=== PATIENT | female | born 1965 | race Caucasian/White ===

== ENCOUNTER 2018-05-12 09:52 | Emergency (ER) | payer SELFPAY | END 2018-05-12 11:51 | disposition home or self-care (01) | LOC: ERS 09:52 | DX: S76.012A Strain of muscle, fascia and tendon of left hip, initial encounter (principal); W19.XXXA Unspecified fall, initial encounter | CPT/HCPCS: 99283 ==

== ENCOUNTER 2020-01-17 12:59 | Observation (INO) | payer OTHER, SELFPAY ==
[2020-01-17 13:48] LABS: #Basophils 0.1 thou/uL (0.0-0.2); #Lymphocytes 1.7 thou/uL (1.20-3.40); #Monocytes 0.5 thou/uL (0.11-0.59); #Neutrophils 2.8 thou/uL (1.40-6.50); %Basophils 2.5 % (0.0-1.0); %Eosinophils 0.9 % (0.0-10.0); %Lymphocytes 32.1 % (21.0-51.0); %Monocytes 10.3 % (0.0-10.0); %Neutrophils 54.2 % (42.0-75.0); Hemoglobin 4.9 g/dL (12.0-16.0); Mean Corpuscular HGB CONC 28.4 g/dL (32.0-36.0); Mean Corpuscular Hemoglobin 17.7 pg (27.0-31.0); Mean Corpuscular Volume 62.2 fL (78.0-98.0); Mean Platelet Volume 10.1 fL (7.4-10.4); Platelet Count 564 thou/uL (130-400); RBC Distribution Width 20.6 % (11.5-14.5); Red Blood Cell (RBC) Count 2.79 mill/uL (4.20-5.40); White Blood Cell (WBC) Count 5.2 thou/uL (4.8-10.8)
--- NOTE | 2020-01-17 13:49 | RAD ---
RADIOGRAPH CHEST 1 VIEW: DATE: 01/16/2020 HISTORY: 54-year-old female with dyspnea FINDINGS: There are no airspace densities, pulmonary edema, pneumothorax, or cardiomegaly. The lateral costophr enic angles are sharp. IMPRESSION: No acute cardiopulmonary findings.
[2020-01-17 14:07] LABS: ALT (SGPT) 10 U/L (8-55); AST (SGOT) 14 U/L (5-34); Alkaline Phosphatase 42 U/L (40-110); Anion Gap 9 mmol/L (10-20); Anisocytosis MODERATE=16-30 cells (100X) (0-5/hpf); BUN (Urea Nitrogen) 12 mg/dL (9.8-20.1); Bilirubin, Total 0.3 mg/dL (0.2-1.2); Calc. Creatinine Clearance 0 mL/min (70-130); Calcium 8.3 mg/dL (7.8-10.44); Carbon Dioxide 25 mmol/L (22-29); Chloride 104 mmol/L (98-107); Estimated GFR-MDRD Greater than 90; Globulin 2.7 g/dL (2.4-3.5); Glucose 113 mg/dL (70-105); Hypochromia SLIGHT = 6-15 cells (100X) (0-5/hpf); MDiff Complete? YES; Microcytosis SLIGHT = 6-15 cells (100X) (0-5/hpf); Ovalocytes SLIGHT = 2-5 cells (100X) (0-1/hpf); Platelet Morphology Comment Appears Increased; Poikilocytosis SLIGHT = 6-15 cells (100X) (0-5/hpf); Polychromasia SLIGHT = 2-3 cells (100X) (0-2/hpf); Potassium 3.3 mmol/L (3.5-5.1); Protein, Total 6.7 g/dL (6.0-8.3); Reflex for Review?? YES; Schistocytes SLIGHT = 2-5 cells (100X) (0-1/hpf); Sodium 135 mmol/L (136-145); Target Cells SLIGHT = 2-5 cells (100X) (0-1/hpf); Tear Drops SLIGHT = 2-5 cells (100X) (0-1/hpf)
[2020-01-17] MEDS ORDERED: Ondansetron PF 4 MG/2 ML Vial ONE (14:17)
[2020-01-17] MEDS ORDERED: Acetaminophen 650 MG Suppository PR PRN (18:17)
[2020-01-17] MEDS ORDERED: Acetaminophen 325 MG TAB PO PRN (18:17)
[2020-01-17] MEDS ORDERED: Ondansetron PF 4 MG/2 ML Vial IVP PRN (18:17)
[2020-01-17] MEDS ORDERED: Ondansetron ODT 4 MG TAB PO PRN (18:17)
[2020-01-17] MEDS ORDERED: Potassium Chloride 20 MEQ TAB PO SCH (18:30)
[2020-01-17 18:38] LABS: Hemoglobin 5.5 g/dL (12.0-16.0)
--- NOTE | 2020-01-17 20:03 | HP ---
TIME OF ASSESSMENT: 1700 hours. CHIEF COMPLAINT: Lightheadedness and palpitations. PRIMARY CARE PHYSICIAN: None. HISTORY OF PRESENT ILLNESS: Ms. Juan is a 54-year-old woman, who states she became extremely lightheaded and dizzy while driving her car, causing her to mandrel puller. She reports feeling palpitations and nausea, prompting her to seek medical attention. The patient states that she has been on her menses, which is normally extremely heavy, causing her to go through over eight super tampons a day. States she often passes large blood clots. She states the bleeding has been much worse than it has been today and she has never felt this symptomatic. She states she did not have much to eat this morning and did go tanning with a friend followed by drinking a couple of beers before she started to feel badly. At the moment, her symptoms have almost fully resolved. She has been transfused with 1 unit of packed red blood cells in the ER after having laboratory studies done that indicated severe anemia with a hemoglobin of 4.9. She had an EKG done, which demonstrated normal sinus rhythm with a heart rate of 69. No ST changes or T-wave abnormalities present. She also received a dose of ondansetron and 500 mL of normal saline. The patient denies any followup with her primary care physician or blaster helper with regard to her heavy menses. She states she has had this all of her life and her menses have always been irregular. Denies any abnormal weight loss. Has otherwise felt well in herself without any complaints. At present, she denies any shortness of breath, palpitations, or chest pain. All other review of systems is negative. ALLERGIES: NO KNOWN DRUG ALLERGIES. CURRENT MEDICATIONS: None. PAST MEDICAL HISTORY: 1. Iron deficiency anemia. 2. Menorrhagia. PAST SURGICAL HISTORY: None. SOCIAL HISTORY: The patient drinks socially and denies any tobacco use or illicit drug use. FAMILY HISTORY: Noncontributory. PHYSICAL EXAMINATION: GENERAL: The patient appears well developed, well nourished, and in no acute distress. She is resting comfortably on a stretcher. VITAL SIGNS: Temperature 98.2, blood pressure 114/58, pulse 71, respirations 14, and O2 saturation 99% on room air. HEENT: Normocephalic and atraumatic. Pupils are equal, round, and reactive to light. Sclerae without icterus. Oropharynx is clear. NECK: Supple. LUNGS: Clear to auscultation bilaterally without any wheezes, rales, or rhonchi. CARDIAC: Regular rate and rhythm. ABDOMEN: Soft, nontender, and nondistended. Normoactive bowel sounds present. No guarding or rigidity. No renal angle tenderness. EXTREMITIES: No lower leg swelling or edema. Peripheral pulses strong and equal bilaterally. SKIN: Normal, warm and dry. No pallor. Skin turgor normal. NEUROLOGIC: Alert and oriented x3. No neuro deficits on exam. LABORATORY DATA: White blood count , hemoglobin 4.9, hematocrit 17.4, platelets 564. Sodium 135, potassium 3.3, BUN 12, creatinine 0.66, GFR greater than 90, glucose 113. LFTs unremarkable. Troponin negative. Albumin 4.0. IMAGING DATA: Chest x-ray, unremarkable. IMPRESSION AND PLAN: Ms. Juan is a 54-year-old woman, presenting with lightheadedness and dizziness associated with heavy menses, who is being admitted for management of the following. 1. Symptomatic anemia. Palpitations and shortness of breath have resolved. She had a significantly low hemoglobin of 4.9. She has been given 1 unit of packed red blood cells in the ED and will receive a second unit. We will continue to monitor H and H. Iron studies have been requested. . 2. Menorrhagia. According to the patient, she has always had extremely heavy menses and for the moment, the bleeding has eased compared to this morning. Consult placed to COMPUTER REPAIRER. 3. Palpitations. EKG unremarkable. The patient will remain on cardiac monitoring. Continue to trend troponins. Echo ordered and orthostatic blood pressures ordered as well. 4. Hypokalemia. Continue to monitor electrolytes and replace as needed. 5. Gastrointestinal prophylaxis with famotidine. 6. Deep venous thrombosis prophylaxis. Mechanical SCDs ordered. Anticoagulation is contraindicated given bleeding and severe anemia. 7. Code status full. Surrogate decision maker is her daughter, Bronwyn Guevara. 8. Case discussed with Dr. Hood, who agrees with plan of care as described above. Job ID: [id number]
[2020-01-17] MEDS: Famotidine/PF 20 mg/2ml Vial SLOW IVP SCH (20:30)
[2020-01-17 21:07] VITALS: BMI 26.0
--- NOTE | 2020-01-17 23:45 | ULT ---
Exam: Pelvic ultrasound HISTORY: Menorrhagia, pelvic mass. COMPARISON: None TECHNIQUE: Multiple grayscale and color Doppler images were obtained in a transabdominal pelvic ultra sound. Spectral analysis of the Doppler waveforms of the ovaries were performed. FINDINGS: CERVIX: Not well assessed on this exam. UTERUS: Enlarged and heterogeneous in appearance. Uterus measures 14.6 cm x 7 cm x 10.7 cm. Uterus al so has a lobulated appearance with heterogeneous masses in the uterus. Largest masses are seen within the right body of uterus measuring 5.8 cm with largest mass left body uterus measuring 5.6 cm and largest mass in the midline at the fundus measuring 5.5 cm. ENDOMETRIAL STRIPE: Endometrial stripe is not delineated on transabdominal imaging. There is no fluid or fluid collection in the expected location of the endometrium. No free fluid is present. RIGHT OVARY: Not visualized due to enlarged uterus and shadowing from bowel gas. LEFT OVARY:Normal in appearance with small cyst/follicle measuring 1.6 cm. Flow is present in the lef t ovary. IMPRESSION: 1. Large heterogeneous and lobulated uterus with multiple masses seen related to multiple uterine fib roids. 2. Nonvisualization of the endometrial stripe. However, no fluid or fluid collection is seen in the e xpected location of the endometrium. 3. Normal-appearing left ovary. The right ovary is not visualized.
--- NOTE | 2020-01-18 04:53 | CON ---
DATE OF CONSULTATION: 01/17/2020 REASON FOR CONSULTATION: Menorrhagia. HISTORY OF PRESENT ILLNESS: The patient is a 54-year-old female who presented to the emergency room today with symptomatic anemia. The patient has noted to be having very heavy periods for the last couple of years and is on the tail end of her this month's menstruation which has been going on for about 2 weeks. The patient was admitted to the hospital for blood transfusion and PLANNING ADVISOR was consulted. At the time of my evaluation, the patient reports that she had not changed her tampon in about 6 to 7 hours. Reports that she has regular monthly periods, but of prolonged duration at times. Her last period has been going on for about 2 weeks. She thought that she was finished a few days ago, it stopped bleeding and then today had very heavy bleeding requiring 8 pads. Upon finishing up at a [email or web address], the patient reported that she was excessively weak, tired and dizzy and was unable to drive her car safely and was ultimately brought to the emergency room for evaluation. Here, she was noted to have a hemoglobin of 4.9, hematocrit of 17.4 , MCV of 62. At the time of my evaluation, patient received 1 unit of packed red blood cells, which reports has helped her feel better and have some resolution of her symptoms, though she does still report some dizziness. The patient denies fever, cough, headache, chest pain, shortness of breath, nausea, vomiting, diarrhea, constipation, hip problems, knee problems, muscle weakness, any new rashes, urinary urgency or frequency. PAST MEDICAL HISTORY: Newly diagnosed anemia and menorrhagia. PAST SURGICAL HISTORY: Negative. SOCIAL HISTORY: The patient drinks occasionally. Denies tobacco or drug use. ALLERGIES: NO KNOWN DRUG ALLERGIES. MEDICATIONS: None. The patient reports more than 10 year history of her last Pap smear. PHYSICAL EXAMINATION: VITAL SIGNS: On the time of my evaluation, blood pressure of 100/53, temperature 98.6, respiratory rate of 16, pulse is 67. GENERAL: She appears to be in no acute distress. She is alert, oriented, cooperative, and pleasant to interact with. HEENT: Head is normocephalic, atraumatic. LUNGS: Clear to auscultation bilaterally. HEART: Has regular rate and rhythm. ABDOMEN: Gravid, soft. She does have a palpable mass that extends up close to her umbilicus, midline and in the pelvis. EXTREMITIES: Nontender, nonedematous. GENITOURINARY: Vulva is without masses, lesions, or erythema. Vagina is moist. She has very minimal dark bloody discharge. Cervix is visibly closed and appears to be normal without any erythema, masses, or lesions. She does have in the os very dark nearly black-colored blood clot. This seems to be combined with a mucousy discharge. On bimanual exam, uterus is enlarged again nearly to the level of the uterus. It is firm, irregular in shape. Right adnexa feels to be within normal limits. Left adnexa are difficult to palpate. DIAGNOSTIC STUDIES: Ultrasound shows an enlarged uterus consistent with containing fibroids. Endometrium is unable to be clearly visualized; however there are no fluid collections within the endometrium. Right ovary is not visualized. Left ovary is normal appearing with a small cyst measuring 1.6 cm. LABORATORY DATA: CMP significant for a slightly depressed potassium of 3.3 and sodium of 135. Cardiac enzymes are within normal limits. Hemoglobin and hematocrit after 1 unit of packed red blood cells were 5.5 and 18.9. ASSESSMENT AND PLAN: The patient is a 54-year-old female with menorrhagia and now symptomatic anemia with apparent likely iron deficiency given her small MCV. The patient has no active bleeding at this time. I have ordered a TSH and an HCG. Ultrasound was performed and noted to confirm what was suspected clinically, an enlarged likely fibroid uterus, which may be contributing to her menorrhagia. Once the patient has been transfused and deemed okay for discharge, I would recommend patient to have very close outpatient followup with PLANNING ADVISOR to discuss various management options including medical management versus surgical management. In the meantime, the patient can be placed on control pills in an attempt to manage her periods as an outpatient. I have placed her a prescription in the discharge planning. We would recommend follow up with [facility]. Job ID: [id number] [facility]ITAL[facility]icki
[2020-01-18 05:00] LABS: ALT (SGPT) 7 U/L (8-55); AST (SGOT) 13 U/L (5-34); Albumin 3.5 g/dL (3.5-5.0); Alkaline Phosphatase 41 U/L (40-110); Anion Gap 9 mmol/L (10-20); BUN (Urea Nitrogen) 11 mg/dL (9.8-20.1); Calc. Creatinine Clearance 89 mL/min (70-130); Carbon Dioxide 22 mmol/L (22-29); Chloride 110 mmol/L (98-107); Estimated GFR-MDRD 78; Globulin 2.6 g/dL (2.4-3.5); Glucose 94 mg/dL (70-105); Iron 105 ug/dL (50-170); Iron Binding Capacity, Total 421 mcg/dL (265-497); Protein, Total 6.1 g/dL (6.0-8.3); Sodium 137 mmol/L (136-145)
[2020-01-18 05:12] LABS: Ferritin Less than 2.00 ng/mL (10-291); Thyroid Stimulating Hormone 0.5275 uIU/mL (0.35-4.94); Vitamin B12 251 pg/mL (211-911)
[2020-01-18 05:16] LABS: #Basophils 0.1 thou/uL (0.0-0.2); #Lymphocytes 1.3 thou/uL (1.20-3.40); #Monocytes 0.7 thou/uL (0.11-0.59); #Neutrophils 5.6 thou/uL (1.40-6.50); %Basophils 0.7 % (0.0-1.0); %Eosinophils 0.3 % (0.0-10.0); %Lymphocytes 16.4 % (21.0-51.0); %Monocytes 8.8 % (0.0-10.0); %Neutrophils 73.8 % (42.0-75.0); Hemoglobin 6.7 g/dL (12.0-16.0); Hypochromia MODERATE=16-30 cells (100X) (0-5/hpf); MDiff Complete? YES; Mean Corpuscular HGB CONC 29.8 g/dL (32.0-36.0); Mean Corpuscular Hemoglobin 20.7 pg (27.0-31.0); Mean Corpuscular Volume 69.4 fL (78.0-98.0); Mean Platelet Volume 10.8 fL (7.4-10.4); Microcytosis MODERATE=15-30 cells (100X) (0-5/hpf); Ovalocytes SLIGHT = 2-5 cells (100X) (0-1/hpf); Platelet Count 449 thou/uL (130-400); Platelet Morphology Comment Appears Increased; RBC Distribution Width 24.8 % (11.5-14.5); Red Blood Cell (RBC) Count 3.26 mill/uL (4.20-5.40); White Blood Cell (WBC) Count 7.6 thou/uL (4.8-10.8)
[2020-01-18 08:02] LABS: Hemoglobin 6.8 g/dL (12.0-16.0)
[2020-01-18] MEDS ORDERED: Iron Sucrose Complex 200 MG in Sodium Chloride 0.9% 250 ML 250 ML IVPB SCH ×2 (09:00→11:30)
[2020-01-18] MEDS ORDERED: Iron, Sodium Ferric Gluconate 250 MG in Sodium Chloride 0.9% 250 ML 250 ML IVPB SCH (09:00)
[2020-01-18] MEDS ORDERED: Prevnar 13-Val Conj/PF 0.5 ML SYRINGE IM ONE (09:00)
[2020-01-18] MEDS ORDERED: Folic Acid 1 MG TAB PO SCH (09:00)
[2020-01-18] MEDS: Famotidine/PF 20 mg/2ml Vial SLOW IVP SCH (09:12)
--- NOTE | 2020-01-18 11:59 | PDOC.HOSPP ---
- Subjective Encounter Date: 01/18/20 Encounter Time: 08:00 Subjective: Patient seen and examined. No new complaints. No overnight events - Objective Vital Signs & Weight: Vital Signs (12 hours) Temp Pulse Resp BP BP BP BP 01/18/20 10:52 98.4 F 75 16 125/65 01/18/20 08:45 125/62 137/67 112/58 L 01/18/20 08:16 98.1 F 65 14 117/58 L 01/18/20 03:00 98.4 F 74 18 107/55 L 01/18/20 00:41 98.4 F Pulse Ox 01/18/20 10:52 98 01/18/20 08:45 01/18/20 08:16 97 01/18/20 03:00 97 01/18/20 00:41 Weight Weight 147 lb 3.2 oz Most Recent Monitor Data Heart Rate from ECG 60 NIBP 103/55 Respiration from ECG 14 I&O: 01/17/20 01/18/20 01/19/20 06:59 06:59 06:59 Intake Total 830 Balance 830 Result Diagrams: 01/18/20 07:23 01/18/20 03:22 Additional Labs: Accuchecks 01/17/20 13:29 POC Glucose 134 H Radiology Reviewed by me: Yes EKG Reviewed by me: Yes Hospitalist ROS - Review of Systems ENT: denies: ear pain, ear discharge, nose pain, nose discharge, nose congestion , mouth pain, mouth swelling, throat pain, throat swelling, other Respiratory: denies: cough, dry, shortness of breath, hemoptysis, SOB with excertion, pleuritic pain, sputum, wheezing, other Cardiovascular: denies: chest pain, palpitations, orthopnea, paroxysmal noc. dyspnea, edema, light headedness, other Gastrointestinal: denies: nausea, vomiting, abdominal pain, diarrhea, constipation, melena, hematochezia, other Genitourinary: denies: dysuria, frequency, incontinence, hematuria, retention, other Musculoskeletal: denies: neck pain, shoulder pain, arm pain, back pain, hand pain, leg pain, foot pain, other Skin: denies: rash, lesions, renee, bruising, other - Medication Medications: Active Medications Generic Name Dose Route Start Last Admin Trade Name Freq PRN Reason Stop Dose Admin Famotidine 20 mg 01/17/20 21:00 01/18/20 09:12 Pepcid SLOW IVP 20 mg Q12HR MIRIAM Administration Folic Acid 1 mg 01/18/20 09:00 01/18/20 09:12 Folvite PO 1 mg DAILY MIRIAM Administration Ferric Sodium Gluconate 270 mls @ 129.808 mls/hr 01/18/20 09:00 01/18/20 09: 11 Complex 250 mg/ Sodium IVPB 270 mls Chloride DAILY MIRIAM Administration - Exam General Appearance: NAD, awake alert Eye: PERRL, anicteric sclera ENT: normocephalic atraumatic, no oropharyngeal lesions Neck: supple, symmetric, no JVD, no thyromegaly Heart: RRR, no murmur, no gallops, no rubs Respiratory: CTAB, no wheezes, no rales Gastrointestinal: soft, non-tender, non-distended, normal bowel sounds Extremities: no cyanosis, no clubbing Skin: normal turgor, no lesions Neurological: cranial nerve grossly intact Musculoskeletal: normal tone, normal strength Psychiatric: normal affect, normal behavior Hosp A/P (1) Iron deficiency anemia due to chronic blood loss Code(s): D50.0 - IRON DEFICIENCY ANEMIA SECONDARY TO BLOOD LOSS (CHRONIC) Status: Acute (2) Menorrhagia Code(s): N92.0 - EXCESSIVE AND FREQUENT MENSTRUATION WITH REGULAR CYCLE Status : Acute (3) Uterine fibroid Code(s): D25.9 - LEIOMYOMA OF UTERUS, UNSPECIFIED Status: Acute (4) Folate deficiency Code(s): E53.8 - DEFICIENCY OF OTHER SPECIFIED B GROUP VITAMINS Status: Acute - Plan old records reviewed/req, plan discussed w/ family give 1 more unit prbc give venofer folic acid echo pending repeat lab after blood given ocp on discharge
[2020-01-18 15:40] VITALS: BP 109/61
[2020-01-18 16:20] VITALS: TEMP 98.2
[2020-01-18 19:19] LABS: Hemoglobin 8.5 g/dL (12.0-16.0)
--- NOTE | 2020-01-19 08:42 | DIS ---
DATE OF ADMISSION: 01/17/2020 DATE OF DISCHARGE: 01/18/2020 PRIMARY CARE PHYSICIAN: [facility] Call admission. DISCHARGE DISPOSITION: Home. PRIMARY DISCHARGE DIAGNOSES: 1. Symptomatic anemia. 2. Iron deficiency anemia due to chronic blood loss. 3. Menorrhagia. 4. Uterine fibroids. 5. Folate deficiency. PRIMARY PROCEDURE/OPERATION: None. RADIOLOGICAL INVESTIGATION: Chest x-ray normal. Pelvic ultrasound showed uterine fibroid. Echocardiography showed normal EF, moderate MR. SIGNIFICANT LABORATORY DATA: Hemoglobin 8.5. Creatinine 0.78, ferritin 2.0, folate 6.8. DISCHARGE MEDICATIONS: Ferrous sulfate 325 mg p.o. b.i.d., folic acid 1 mg daily, control pill 1 tablet daily as directed. CONTRAINDICATION: None. CODE STATUS: Full code. INPATIENT DENTAL LABORATORY TECHNICIAN: Dr. Horace Branham. TEST RESULT PENDING ON DISCHARGE: None. ALLERGIES: NO KNOWN DRUG ALLERGIES. DISCHARGE PLAN: Post-hospital the patient will follow up with [facility] in 2 weeks. The patient will make appointment with primary care physician. HOSPITAL COURSE: A 54-year-old female who was admitted for symptomatic anemia. Please see H and P dictated by Maira Ford. The patient was having symptomatic anemia. On admission, her hemoglobin was of 4.9. During this admission, she was given total of 3 units of blood transfusion. On discharge, her hemoglobin was 8.5. She has iron deficiency anemia. We also gave her IV iron while in the hospital. Folate was deficient and that is why it was replaced. The patient was found with uterine fibroid and CLINICAL COUNSELOR was consulted and they recommended oral contraceptive pill and outpatient followup. Echocardiography showed moderate mitral regurgitation. Overall, the patient is medically stable for discharge. Please see my progress note from that day for more details. Job ID: [id number]
--- NOTE | 2020-01-21 12:31 | EKG ---
Test Reason : Blood Pressure : / mmHG Vent. Rate : 069 BPM Atrial Rate : 069 BPM P-R Int : 174 ms QRS Dur : 088 ms QT Int : 478 ms P-R-T Axes : 063 053 031 degrees QTc Int : 512 ms Normal sinus rhythm Nonspecific ST and T wave abnormality Prolonged QT Abnormal ECG Confirmed by APOORVA BOOTH DO ([id number]), editor trade journal LANIE TALBERT ([id number]) on 01/21/2020 12:31:22 PM Referred By: Confirmed By:APOORVA BOOTH DO
== END 2020-01-18 20:33 | disposition home or self-care (01) ==
LOC: ERS 12:59 → INTOOBSV 16:00 → 2NO 16:00
PROVIDERS: ADMIT Internal Medicine; ATTEND Internal Medicine
DX: D62 Acute posthemorrhagic anemia (principal); N92.0 Excessive and frequent menstruation with regular cycle; D25.9 Leiomyoma of uterus, unspecified; E53.8 Deficiency of other specified B group vitamins; E87.6 Hypokalemia; I34.0 Nonrheumatic mitral (valve) insufficiency
CPT/HCPCS: 36415; 36416; 36430; 71045; 76856; 80053; 82607; 82728; 82746; 83540; 83550; 83880; 84443; 84484; 84702; 85025; 85060; 86850; 86900; 86901; 93005; 93306; 93976; 96374; 96375; 96376; G0378; J2405; J2916; J7050; P9016; S0028

== ENCOUNTER 2020-10-02 07:28 | Emergency (ER) | payer SELFPAY ==
[2020-10-02 08:29] LABS: #Basophils 0.1 thou/uL (0.0-0.2); #Eosinphils 0.1 thou/uL (0.0-0.7); #Lymphocytes 0.8 thou/uL (1.20-3.40); #Monocytes 0.3 thou/uL (0.11-0.59); #Neutrophils 3.8 thou/uL (1.40-6.50); %Basophils 1.1 % (0.0-1.0); %Monocytes 6.9 % (0.0-10.0); %Neutrophils 75.9 % (42.0-75.0); Hemoglobin 6.7 g/dL (12.0-16.0); Mean Corpuscular HGB CONC 32.2 g/dL (32.0-36.0); Mean Corpuscular Hemoglobin 29.7 pg (27.0-31.0); Mean Corpuscular Volume 92.1 fL (78.0-98.0); Mean Platelet Volume 8.3 fL (7.4-10.4); Platelet Count 257 thou/uL (130-400); RBC Distribution Width 16.2 % (11.5-14.5); Red Blood Cell (RBC) Count 2.26 mill/uL (4.20-5.40)
[2020-10-02 08:52] LABS: ALT (SGPT) 9 U/L (8-55); AST (SGOT) 12 U/L (5-34); Albumin 3.3 g/dL (3.5-5.0); Alkaline Phosphatase 33 U/L (40-110); Anion Gap 11 mmol/L (10-20); BUN (Urea Nitrogen) 13 mg/dL (9.8-20.1); Bilirubin, Total Less than 0.2 mg/dL (0.2-1.2); Calc. Creatinine Clearance 0 mL/min (70-130); Calcium 7.9 mg/dL (7.8-10.44); Carbon Dioxide 25 mmol/L (22-29); Chloride 107 mmol/L (98-107); Globulin 2.5 g/dL (2.4-3.5); Glucose 122 mg/dL (70-105); Potassium 3.5 mmol/L (3.5-5.1); Protein, Total 5.8 g/dL (6.0-8.3); Sodium 139 mmol/L (136-145)
--- NOTE | 2020-10-02 10:03 | ULT ---
ULTRASOUND PELVIC DOPPLER DUPLEX: DATE: 10/02/2020 HISTORY: 55-year-old female with pelvic pain and heavy vaginal bleeding. TECHNIQUE: Transabdominal transducer used to visualize intrapelvic contents with grayscale, color-flow, and spec tral analysis. FINDINGS: Uterus measures approximately 17 x 13.5 x 8 cm. There are multiple solid myometrial masses consistent with fibroids. The largest is approximately 6.5 x 5.5 x 7 cm, located on the left. There is an approximately 1.5 x 1 cm cystic lesion at the anterior superior portion of the uterus. Endometrial stripe not identified because of the multiple fibroids and associated distortion of archi tecture Right ovary measures approximately 4.6 x 3 x 3.5 cm, and contains a round 3 cm cyst. Left ovary not identified. No free fluid in the cul-de-sac IMPRESSION: Uterus enlarged by multiple uterine leiomyomata (fibroids).
--- NOTE | 2020-10-06 15:37 | EKG ---
Test Reason : Blood Pressure : / mmHG Vent. Rate : 110 BPM Atrial Rate : 110 BPM P-R Int : 136 ms QRS Dur : 074 ms QT Int : 356 ms P-R-T Axes : 048 026 067 degrees QTc Int : 481 ms Sinus tachycardia Confirmed by APOORVA BOOTH DO ([id number]), editorial assistant LANIE TALBERT ([id number]) on 10/06/2020 3:37:15 PM Referred By: Confirmed By:APOORVA BOOTH DO
== END 2020-10-02 14:30 | disposition home or self-care (01) ==
LOC: ERS 07:28
DX: N93.9 Abnormal uterine and vaginal bleeding, unspecified (principal); D50.9 Iron deficiency anemia, unspecified; Z79.899 Other long term (current) drug therapy
CPT/HCPCS: 36415; 36430; 76856; 80053; 84484; 84702; 85025; 86850; 86900; 86901; 93005; 93976; P9016

== ENCOUNTER 2020-12-31 19:44 | Emergency (ER) | payer SELFPAY ==
[2020-12-31 20:31] LABS: #Monocytes 0.4 thou/uL (0.11-0.59); #Neutrophils 4.1 thou/uL (1.40-6.50); %Basophils 0.8 % (0.0-1.0); %Eosinophils 0.6 % (0.0-10.0); %Lymphocytes 17.7 % (21.0-51.0); %Monocytes 7.4 % (0.0-10.0); %Neutrophils 73.6 % (42.0-75.0); Hemoglobin 7.2 g/dL (12.0-16.0); Mean Corpuscular HGB CONC 30.4 g/dL (32.0-36.0); Mean Corpuscular Hemoglobin 24.6 pg (27.0-31.0); Mean Corpuscular Volume 80.9 fL (78.0-98.0); Mean Platelet Volume 8.6 fL (7.4-10.4); Platelet Count 442 thou/uL (130-400); RBC Distribution Width 16.5 % (11.5-14.5); Red Blood Cell (RBC) Count 2.93 mill/uL (4.20-5.40); White Blood Cell (WBC) Count 5.5 thou/uL (4.8-10.8)
[2020-12-31 20:33] LABS: BHCG - Serum Negative (NEGATIVE); Pregs Control Background? CLEAR/WHITE (CLR/WHITE); Pregs Control Bar Appear? YES (CONTROL BAR)
[2020-12-31 20:34] LABS: Bacteria/HPF None Seen HPF (None Seen); Bilirubin Negative (Negative); Blood, Urine 3+ (Negative); Clarity Turbid (Clear); Glucose, Urine (Dipstick) Normal (Negative); Ketone, Urine Negative (Negative); Leukocyte Negative Leu/uL (Negative); Nitrite Negative (Negative); Protein, Urine (Dipstick) 50 mg/dL (Neg-Trace); RBC/HPF Greater than 50 HPF (0-3); Specific Gravity, Urine 1.015 (1.002-1.036); Squamous Epithelial None Seen HPF (0-3); Urobilinogen Normal mg/dL (Less than 2)
[2020-12-31 20:51] LABS: ALT (SGPT) 12 U/L (8-55); AST (SGOT) 16 U/L (5-34); Albumin 4.2 g/dL (3.5-5.0); Alkaline Phosphatase 46 U/L (40-110); Anion Gap 13 mmol/L (10-20); BUN (Urea Nitrogen) 7 mg/dL (9.8-20.1); Bilirubin, Total 0.3 mg/dL (0.2-1.2); Calc. Creatinine Clearance 0 mL/min (70-130); Calcium 8.7 mg/dL (7.8-10.44); Carbon Dioxide 24 mmol/L (22-29); Chloride 108 mmol/L (98-107); Glucose 121 mg/dL (70-105); Potassium 3.6 mmol/L (3.5-5.1); Protein, Total 7.2 g/dL (6.0-8.3); Sodium 141 mmol/L (136-145)
== END 2021-01-01 00:26 | disposition home or self-care (01) ==
LOC: ERS 19:44
DX: D50.9 Iron deficiency anemia, unspecified (principal); Z79.899 Other long term (current) drug therapy
CPT/HCPCS: 36430; 71045; 80053; 81003; 81015; 84703; 85025; 86850; 86900; 86901; 93005; P9016

== ENCOUNTER 2021-04-06 08:51 | Emergency (ER) | payer SELFPAY ==
[2021-04-06 09:26] LABS: White Blood Cell (WBC) Count 6.3 thou/uL (4.8-10.8)
[2021-04-06 09:27] LABS: BHCG - Serum Negative (NEGATIVE); Pregs Control Background? CLEAR/WHITE (CLR/WHITE); Pregs Control Bar Appear? YES (CONTROL BAR)
[2021-04-06 09:43] LABS: ALT (SGPT) 11 U/L (8-55); AST (SGOT) 12 U/L (5-34); Albumin 3.7 g/dL (3.5-5.0); Alkaline Phosphatase 42 U/L (40-110); Anion Gap 8 mmol/L (10-20); BUN (Urea Nitrogen) 10 mg/dL (9.8-20.1); Bilirubin, Total 0.2 mg/dL (0.2-1.2); Calc. Creatinine Clearance 0 mL/min (70-130); Calcium 8.7 mg/dL (7.8-10.44); Carbon Dioxide 24 mmol/L (22-29); Chloride 107 mmol/L (98-107); Globulin 2.9 g/dL (2.4-3.5); Glucose 101 mg/dL (70-105); Potassium 3.8 mmol/L (3.5-5.1); Protein, Total 6.6 g/dL (6.0-8.3); Sodium 135 mmol/L (136-145)
[2021-04-06 10:06] LABS: #Basophils 0.1 thou/uL (0.0-0.2); #Eosinphils 0.1 thou/uL (0.0-0.7); #Lymphocytes 0.9 thou/uL (1.20-3.40); #Monocytes 0.8 thou/uL (0.11-0.59); #Neutrophils 4.5 thou/uL (1.40-6.50); %Basophils 1.5 % (0.0-1.0); %Lymphocytes 14.3 % (21.0-51.0); %Monocytes 12.1 % (0.0-10.0); %Neutrophils 71.1 % (42.0-75.0); Anisocytosis MODERATE=16-30 cells (100X) (0-5/hpf); Hemoglobin 6.1 g/dL (12.0-16.0); Hypochromia SLIGHT = 6-15 cells (100X) (0-5/hpf); Lymphocytes 18 % (21-51); MDiff Complete? YES; Mean Corpuscular HGB CONC 31.2 g/dL (32.0-36.0); Mean Corpuscular Hemoglobin 24.8 pg (27.0-31.0); Mean Corpuscular Volume 79.5 fL (78.0-98.0); Mean Platelet Volume 8.5 fL (7.4-10.4); Neutrophil 82 % (42-75); Nucleated RBC 1 % (0); Ovalocytes SLIGHT = 2-5 cells (100X) (0-1/hpf); Platelet Count 435 thou/uL (130-400); Platelet Morphology Comment Appears Increased; Polychromasia MODERATE = 3-4 cells (100X) (0-2/hpf); RBC Distribution Width 23.4 % (11.5-14.5); Red Blood Cell (RBC) Count 2.45 mill/uL (4.20-5.40)
== END 2021-04-06 12:11 | disposition home or self-care (01) ==
LOC: ERS 08:51
DX: D25.9 Leiomyoma of uterus, unspecified (principal); D64.9 Anemia, unspecified
CPT/HCPCS: 36415; 36430; 80053; 84703; 85025; 86850; 86900; 86901; 99284; P9016

== ENCOUNTER 2021-06-07 20:16 | Emergency (ER) | payer OTHER, SELFPAY ==
[2021-06-07 21:36] LABS: #Eosinphils 0.1 thou/uL (0.0-0.7); #Lymphocytes 1.3 thou/uL (1.20-3.40); #Monocytes 0.7 thou/uL (0.11-0.59); #Neutrophils 4.1 thou/uL (1.40-6.50); %Basophils 0.5 % (0.0-1.0); %Eosinophils 2.1 % (0.0-10.0); %Lymphocytes 20.8 % (21.0-51.0); %Neutrophils 65.5 % (42.0-75.0); Hemoglobin 9.2 g/dL (12.0-16.0); Mean Corpuscular HGB CONC 31.5 g/dL (32.0-36.0); Mean Corpuscular Hemoglobin 28.4 pg (27.0-31.0); Mean Corpuscular Volume 89.9 fL (78.0-98.0); Mean Platelet Volume 7.8 fL (7.4-10.4); Platelet Count 398 thou/uL (130-400); RBC Distribution Width 17.2 % (11.5-14.5); Red Blood Cell (RBC) Count 3.24 mill/uL (4.20-5.40); White Blood Cell (WBC) Count 6.2 thou/uL (4.8-10.8)
== END 2021-06-07 22:10 | disposition home or self-care (01) ==
LOC: ERS 20:16
DX: D25.9 Leiomyoma of uterus, unspecified (principal); D50.9 Iron deficiency anemia, unspecified
CPT/HCPCS: 36415; 85025; 86850; 86870; 86900; 86901; 99284